=== PATIENT | female | born 1985 | race Caucasian/White ===

== ENCOUNTER 2017-12-28 08:13 | Inpatient (IN) | payer MEDICAID ==
[2017-12-28] MEDS ORDERED: OXYTOCIN 30 UNITS/LR 500 ML IV ×3 (10:30→21:00)
[2017-12-28] MEDS ORDERED: MISOPROSTOL 200 MCG TAB PR ×2 (10:30→21:00)
[2017-12-28] MEDS ORDERED: METHYLERGONOVINE 0.2 MG INJ IM ×2 (10:30→21:00)
[2017-12-28] MEDS ORDERED: LIDOCAINE 1% (MPF) 30 ML INJ INJ (10:30)
[2017-12-28] MEDS ORDERED: BUTORPHANOL 2 MG INJ IV (10:30)
[2017-12-28] MEDS: LACTATED RINGER'S 1,000 ML IV* ×2 (11:01→16:41)
[2017-12-28 11:46] LABS: ADD MAN DIFF? NO
[2017-12-28 11:48] LABS: WHITE BLOOD COUNT 6.9 10^3/ul (4.8-10.8)
[2017-12-28 11:48] LABS: BASOPHILS % 0.3 % (0.0-2.0); EOSINOPHILS # 0.1 10^3/ul (0.0-0.5); EOSINOPHILS % 0.9 % (0.0-7.0); HEMATOCRIT 35.8 % (37.0-47.0); HEMOGLOBIN 12.5 g/dl (12.0-16.0); LYMPHOCYTES % 14.8 % (15.0-51.0); MEAN CORPUSCULAR HGB CONC 34.9 g/dl (32.0-37.0); MEAN CORPUSCULAR VOLUME 94.5 fl (82.0-101.0); MEAN PLATELET VOLUME 9.3 fl (7.4-10.4); MONOCYTE # 0.6 10^3/ul (0.3-0.9); MONOCYTES % 8.2 % (0.0-11.0); NEUTROPHIL # 5.2 10^3/ul (1.6-7.5); NEUTROPHILS % 75.5 % (39.0-77.0); PLATELET COUNT 213 10^3/UL (140-415); RED BLOOD COUNT 3.79 10^6/ul (4.20-5.40); RED CELL DISTRIBUTION WIDTH 12.4 % (11.5-14.5)
[2017-12-28] MEDS: OXYTOCIN 30 UNITS/LR 500 ML IV ×3 (12:01→22:34)
[2017-12-28 12:09] LABS: INR 0.91; PARTIAL THROMBOPLASTIN TIME 27.4 Sec (25.0-35.0); PROTIME 12.3 Sec (11.9-14.9)
[2017-12-28 17:35] LABS: RAPID PLASMA REAGIN NONREACTIVE (NR)
[2017-12-28] MEDS: IBUPROFEN 600 MG TAB PO (17:51)
[2017-12-28] MEDS ORDERED: ZOLPIDEM 5 MG TAB PO (21:00)
[2017-12-28] MEDS ORDERED: CARBOPROST 250 MCG INJ IM (21:00)
[2017-12-28] MEDS ORDERED: NACL 0.9% 3 ML SYG IV (21:00)
[2017-12-28] MEDS ORDERED: OXYCODONE/ASPIRIN (4.88/325) TAB PO (21:00)
[2017-12-28] MEDS ORDERED: WITCH HAZEL/GLYCERIN PAD PR (21:00)
[2017-12-28] MEDS: SENNA/DOCUSATE NA (8.6MG/50MG) TAB PO (21:07)
[2017-12-28] MEDS: LANOLIN 7 GM TUBE TOP (21:07)
[2017-12-29] MEDS: IBUPROFEN 600 MG TAB PO ×4 (00:01→18:35)
[2017-12-29 08:28] LABS: ADD MAN DIFF? NO
[2017-12-29 08:34] LABS: WHITE BLOOD COUNT 10.5 10^3/ul (4.8-10.8)
[2017-12-29 08:34] LABS: BASOPHILS % 0.2 % (0.0-2.0); EOSINOPHILS # 0.1 10^3/ul (0.0-0.5); EOSINOPHILS % 0.8 % (0.0-7.0); HEMATOCRIT 35.5 % (37.0-47.0); LYMPHOCYTES # 1.2 10^3/ul (0.8-2.9); LYMPHOCYTES % 11.8 % (15.0-51.0); MEAN CORPUSCULAR HEMOGLOBIN 31.8 pg (29.0-33.0); MEAN CORPUSCULAR HGB CONC 33.8 g/dl (32.0-37.0); MEAN CORPUSCULAR VOLUME 94.2 fl (82.0-101.0); MEAN PLATELET VOLUME 9.5 fl (7.4-10.4); MONOCYTE # 0.7 10^3/ul (0.3-0.9); MONOCYTES % 6.3 % (0.0-11.0); NEUTROPHIL # 8.4 10^3/ul (1.6-7.5); NEUTROPHILS % 80.5 % (39.0-77.0); PLATELET COUNT 209 10^3/UL (140-415); RED BLOOD COUNT 3.77 10^6/ul (4.20-5.40); RED CELL DISTRIBUTION WIDTH 12.4 % (11.5-14.5)
[2017-12-29] MEDS: SENNA/DOCUSATE NA (8.6MG/50MG) TAB PO ×3 (09:00→21:19)
[2017-12-30] MEDS: IBUPROFEN 600 MG TAB PO ×3 (00:09→12:08)
[2017-12-30] MEDS: SENNA/DOCUSATE NA (8.6MG/50MG) TAB PO (12:08)
[2017-12-30] MEDS: DIPHTH/TET/ACEL PERTUSS (ADULT) 0.5 ML VIAL IM* (12:09)
== END 2017-12-30 13:10 | disposition home or self-care (01) | DRG 775 ==
LOC: OBT 08:13 → L-D 08:15 → OBT 08:45 → L-D 08:45 → PP1 20:30
PROVIDERS: Obstetrics & Gynecology
PROC: 10E0XZZ Delivery of Products of Conception, External Approach (ICD-10-PCS; principal; 2017-12-28)
PROC: 4A1HXCZ Monitoring of Products of Conception, Cardiac Rate, External Approach (ICD-10-PCS; 2017-12-28)
PROC: 3E0234Z Introduction of Serum, Toxoid and Vaccine into Muscle, Percutaneous Approach (ICD-10-PCS; 2017-12-30)
DX: O48.0 Post-term pregnancy (principal); O41.03X0 Oligohydramnios, third trimester, not applicable or unspecified; Z3A.40 40 weeks gestation of pregnancy; Z37.0 Single live birth; Z23 Encounter for immunization
CPT/HCPCS: 76815; 85025; 85610; 85730; 86592; 86900; 86901; 90715